=== PATIENT | male | born 1995 | race Caucasian/White ===

== ENCOUNTER 2016-12-19 13:40 | Inpatient (IN) | payer MEDICAID, OTHER ==
[~2016-12-19] VITALS: Ht 175.3 cm; Wt 100.0 kg
[2016-12-19] MEDS ORDERED: LIDOCAINE 1%/EPI 30 ML INJ ONE (14:02)
[2016-12-19] MEDS ORDERED: LIDOCAINE 1%/EPI 30 ML INJ INJ STA (14:03)
[2016-12-19] MEDS ORDERED: SOD CHLORIDE 0.9% 1,000 ML IV STA (14:08)
[2016-12-19] MEDS ORDERED: DIPHTH/TET/ACEL PERTUSS (ADULT) 0.5 ML VIAL IM* ONE (14:30)
[2016-12-19] MEDS ORDERED: CEFAZOLIN 1 GM/50 ML (PMX) 50 ML IVPB SCH (14:30)
[2016-12-19] MEDS ORDERED: HYDROmorphONE 2 MG/ML SYG IV ONE (14:30)
[2016-12-19] MEDS ORDERED: ONDANSETRON 4 MG INJ IV ONE (14:30)
[2016-12-19 14:55] LABS: ADD SCAN DIFF NO
[2016-12-19 15:03] LABS: BASOPHIL # 0.1 10^3/ul (0.0-0.1); BASOPHILS % 0.4 % (0.0-2.0); EOSINOPHILS % 0.3 % (0.0-7.0); HEMATOCRIT 42.6 % (42.0-52.0); HEMOGLOBIN 14.3 g/dl (14.0-18.0); LYMPHOCYTES # 1.9 10^3/ul (0.8-2.9); LYMPHOCYTES % 11.8 % (18.0-55.0); MEAN CORPUSCULAR HEMOGLOBIN 29.4 pg (29.0-33.0); MEAN CORPUSCULAR HGB CONC 33.6 g/dl (32.0-37.0); MEAN CORPUSCULAR VOLUME 87.7 fl (72.0-104.0); MONOCYTE # 1.1 10^3/ul (0.3-0.9); MONOCYTES % 6.8 % (0.0-13.0); NEUTROPHIL # 12.7 10^3/ul (1.6-7.5); NEUTROPHILS % 80.3 % (30.0-74.0); PLATELET COUNT 344 10^3/UL (140-415); RED BLOOD COUNT 4.86 10^6/ul (4.70-6.10); RED CELL DISTRIBUTION WIDTH 12.7 % (11.5-14.5); WHITE BLOOD COUNT 15.8 10^3/ul (4.8-10.8)
[2016-12-19 15:16] LABS: INR 1.02; PROTIME 13.4 Sec (12.2-14.2)
[2016-12-19 15:17] LABS: PARTIAL THROMBOPLASTIN TIME 29.4 Sec (25.0-35.0)
[2016-12-19 15:20] LABS: POTASSIUM 3.2 mmol/L (3.5-5.1)
[2016-12-19 15:23] LABS: CREATININE 0.83 mg/dl (0.61-1.24)
[2016-12-19 15:24] LABS: CALCIUM 9.4 mg/dl (8.4-10.2)
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
[2016-12-19 17:00] VITALS: BP 139/89; RESP 18
[2016-12-19] MEDS ORDERED: ACETAMINOPHEN 325 MG TAB PO PRN ×2 (17:00→17:30)
[2016-12-19] MEDS ORDERED: ONDANSETRON 4 MG INJ IV PRN ×2 (17:00→17:30)
[2016-12-19] MEDS ORDERED: MAGNESIUM HYDROXIDE 30ML CUP PO PRN (17:30)
[2016-12-19] MEDS ORDERED: DOCUSATE SODIUM 100 MG CAP PO PRN (17:30)
[2016-12-19] MEDS ORDERED: VANCOMYCIN IV PER PHARMACY XX SCH (17:30)
[2016-12-19] MEDS ORDERED: ALBUTEROL/IPRATROPIUM (NEB) 3 ML AMP HHN PRN (17:30)
[2016-12-19] MEDS ORDERED: NITROGLYCERIN (SL) 0.4 MG TAB SL PRN (17:30)
[2016-12-19] MEDS ORDERED: NA PHOSPHATE/BIPHOS 133 ML ENEMA PR PRN (17:30)
[2016-12-19] MEDS ORDERED: NACL 0.9% 3 ML SYG IV SCH (17:30)
[2016-12-19] MEDS ORDERED: hydrALAzine 20 MG INJ IV PRN (17:30)
[2016-12-19] MEDS ORDERED: LORAZEPAM 2 MG INJ IV PRN (17:30)
[2016-12-19] MEDS: morphine 2 MG INJ IV PRN ×2 (18:12→22:15)
[2016-12-19] MEDS: PIPER-TAZO 3.375 GM IV (PMX) 100 ML IVPB SCH ×2 (18:20→23:24)
[2016-12-19] MEDS: SOD CHLORIDE 0.9% 1,000 ML IV SCH (18:20)
[2016-12-19 18:28] VITALS: Ht 175.3 cm; Wt 100.0 kg
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
[2016-12-19 19:38] LABS: INR 1.06; PROTIME 13.8 Sec (12.2-14.2); PT RATIO 1.1
[2016-12-19 19:39] LABS: PARTIAL THROMBOPLASTIN TIME 30.9 Sec (25.0-35.0)
[2016-12-19] MEDS: HYDROCODONE/APAP (5/325) TAB PO PRN (19:50)
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
[2016-12-19 20:19] VITALS: BP 121/67; RESP 20
[2016-12-20] MEDS: morphine 2 MG INJ IV PRN ×5 (01:58→20:04)
[2016-12-20] MEDS: HYDROCODONE/APAP (5/325) TAB PO PRN ×4 (02:57→23:08)
[2016-12-20] MEDS: SOD CHLORIDE 0.9% 1,000 ML IV SCH ×4 (02:58→23:16)
[2016-12-20] MEDS: PIPER-TAZO 3.375 GM IV (PMX) 100 ML IVPB SCH (05:41)
[2016-12-20] MEDS: PANTOPRAZOLE (EC) 40 MG TAB PO SCH (05:41)
[2016-12-20 07:15] LABS: CHOL/HDL RATIO 3.6 RATIO
[2016-12-20 07:24] LABS: ADD SCAN DIFF NO
[2016-12-20 07:35] LABS: THYROID STIMULATING HORMONE 1.17 MIU/L (0.465-4.680)
[2016-12-20 07:43] LABS: POTASSIUM 3.9 mmol/L (3.5-5.1)
[2016-12-20 07:46] LABS: CREATININE 0.89 mg/dl (0.61-1.24)
[2016-12-20 07:47] LABS: CALCIUM 9.1 mg/dl (8.4-10.2); MAGNESIUM 1.7 mg/dl (1.7-2.5); PHOSPHORUS 4.3 mg/dl (2.5-4.9)
[2016-12-20 07:51] LABS: BASOPHILS % 0.3 % (0.0-2.0); EOSINOPHILS # 0.1 10^3/ul (0.0-0.5); EOSINOPHILS % 1.1 % (0.0-7.0); HEMATOCRIT 39.3 % (42.0-52.0); HEMOGLOBIN 12.9 g/dl (14.0-18.0); LYMPHOCYTES # 2.4 10^3/ul (0.8-2.9); LYMPHOCYTES % 23.9 % (18.0-55.0); MEAN CORPUSCULAR HEMOGLOBIN 29.5 pg (29.0-33.0); MEAN CORPUSCULAR HGB CONC 32.8 g/dl (32.0-37.0); MEAN CORPUSCULAR VOLUME 89.7 fl (72.0-104.0); MEAN PLATELET VOLUME 9.6 fl (7.4-10.4); MONOCYTE # 1.1 10^3/ul (0.3-0.9); MONOCYTES % 10.8 % (0.0-13.0); NEUTROPHIL # 6.3 10^3/ul (1.6-7.5); NEUTROPHILS % 63.6 % (30.0-74.0); PLATELET COUNT 313 10^3/UL (140-415); RED BLOOD COUNT 4.38 10^6/ul (4.70-6.10); RED CELL DISTRIBUTION WIDTH 12.9 % (11.5-14.5); WHITE BLOOD COUNT 9.9 10^3/ul (4.8-10.8)
[2016-12-20 07:59] VITALS: BP 117/73; RESP 16
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
[2016-12-20] MEDS: VANCOMYCIN 1 GM in NS 250 ML IVPB SCH ×2 (17:35→23:16)
[2016-12-20 19:22] VITALS: BP 136/71; RESP 18
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
[2016-12-21] MEDS: morphine 2 MG INJ IV PRN ×2 (03:18→10:05)
[2016-12-21] MEDS: HYDROCODONE/APAP (5/325) TAB PO PRN ×3 (05:15→23:15)
[2016-12-21] MEDS: PANTOPRAZOLE (EC) 40 MG TAB PO SCH (05:15)
[2016-12-21] MEDS: SOD CHLORIDE 0.9% 1,000 ML IV SCH ×4 (05:23→23:08)
[2016-12-21] MEDS: VANCOMYCIN 1 GM in NS 250 ML IVPB SCH ×3 (06:57→23:07)
[2016-12-21 08:00] LABS: ADD SCAN DIFF NO
[2016-12-21 08:08] VITALS: BP 127/77; RESP 18
[2016-12-21 08:09] LABS: BASOPHILS % 0.4 % (0.0-2.0); EOSINOPHILS # 0.1 10^3/ul (0.0-0.5); EOSINOPHILS % 0.7 % (0.0-7.0); HEMATOCRIT 40.1 % (42.0-52.0); HEMOGLOBIN 13.7 g/dl (14.0-18.0); LYMPHOCYTES # 1.9 10^3/ul (0.8-2.9); LYMPHOCYTES % 18.1 % (18.0-55.0); MEAN CORPUSCULAR HEMOGLOBIN 30.4 pg (29.0-33.0); MEAN CORPUSCULAR HGB CONC 34.2 g/dl (32.0-37.0); MEAN CORPUSCULAR VOLUME 89.1 fl (72.0-104.0); MEAN PLATELET VOLUME 9.2 fl (7.4-10.4); MONOCYTE # 0.9 10^3/ul (0.3-0.9); MONOCYTES % 8.5 % (0.0-13.0); NEUTROPHIL # 7.6 10^3/ul (1.6-7.5); PLATELET COUNT 327 10^3/UL (140-415); RED CELL DISTRIBUTION WIDTH 12.7 % (11.5-14.5); WHITE BLOOD COUNT 10.5 10^3/ul (4.8-10.8)
[2016-12-21 08:25] LABS: CREATININE 0.83 mg/dl (0.61-1.24)
[2016-12-21 10:08] VITALS: BP 131/94; PULSE 72
[2016-12-21] MEDS ORDERED: morphine (ER) 15 MG TAB PO ONE (11:00)
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
[2016-12-21 19:47] VITALS: BP 134/60; RESP 18
[2016-12-21] MEDS: morphine (ER) 15 MG TAB PO SCH (20:59)
[2016-12-22] MEDS: SOD CHLORIDE 0.9% 1,000 ML IV SCH ×3 (05:16→23:30)
[2016-12-22] MEDS: VANCOMYCIN 1.25 GM in SOD CHLORIDE 0.9% 250 ML IVPB SCH ×3 (05:39→20:31)
[2016-12-22] MEDS: PANTOPRAZOLE (EC) 40 MG TAB PO SCH (05:57)
[2016-12-22] MEDS: HYDROCODONE/APAP (5/325) TAB PO PRN ×2 (05:57→18:40)
[2016-12-22 07:39] VITALS: BP 121/72; RESP 18
[2016-12-22 07:57] LABS: ADD SCAN DIFF NO
[2016-12-22 08:08] LABS: BASOPHIL # 0.1 10^3/ul (0.0-0.1); BASOPHILS % 0.5 % (0.0-2.0); EOSINOPHILS # 0.2 10^3/ul (0.0-0.5); EOSINOPHILS % 1.5 % (0.0-7.0); HEMATOCRIT 39.7 % (42.0-52.0); HEMOGLOBIN 12.9 g/dl (14.0-18.0); LYMPHOCYTES # 2.4 10^3/ul (0.8-2.9); LYMPHOCYTES % 23.7 % (18.0-55.0); MEAN CORPUSCULAR HEMOGLOBIN 29.4 pg (29.0-33.0); MEAN CORPUSCULAR HGB CONC 32.5 g/dl (32.0-37.0); MEAN CORPUSCULAR VOLUME 90.4 fl (72.0-104.0); MEAN PLATELET VOLUME 9.4 fl (7.4-10.4); MONOCYTES % 10.3 % (0.0-13.0); NEUTROPHIL # 6.3 10^3/ul (1.6-7.5); NEUTROPHILS % 63.7 % (30.0-74.0); PLATELET COUNT 311 10^3/UL (140-415); RED BLOOD COUNT 4.39 10^6/ul (4.70-6.10); RED CELL DISTRIBUTION WIDTH 12.9 % (11.5-14.5); WHITE BLOOD COUNT 9.9 10^3/ul (4.8-10.8)
[2016-12-22 08:16] LABS: POTASSIUM 3.7 mmol/L (3.5-5.1)
[2016-12-22 08:19] LABS: CREATININE 0.77 mg/dl (0.61-1.24)
[2016-12-22 08:20] LABS: CALCIUM 9.3 mg/dl (8.4-10.2)
[2016-12-22] MEDS: morphine (ER) 15 MG TAB PO SCH ×2 (08:59→20:30)
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
[2016-12-22 19:25] VITALS: BP 118/58; RESP 22
--- NOTE | 2016-12-22 19:28 | PN ---
DATE: 12/22/2016 Stays afebrile. No more leukocytosis with a WBC count of 9.9. Less effusion over the left knee. N o signs of local pyogenic process over the area of laceration. Has been up and around with PT. Zulay armendariz to be discharged with oral antibiotics from ortho point. Further followup as an outpatient. Dictated By: BAILEY MIR/BRUCE Conf#: [id number] DID#: [id number]
[2016-12-23] MEDS: HYDROCODONE/APAP (5/325) TAB PO PRN ×4 (00:19→23:32)
[2016-12-23] MEDS: SOD CHLORIDE 0.9% 1,000 ML IV SCH ×3 (01:16→19:26)
[2016-12-23] MEDS: PANTOPRAZOLE (EC) 40 MG TAB PO SCH (05:47)
[2016-12-23] MEDS: VANCOMYCIN 1.25 GM in SOD CHLORIDE 0.9% 250 ML IVPB SCH ×3 (05:47→21:15)
[2016-12-23 07:22] VITALS: BP 123/63; RESP 18
[2016-12-23] MEDS: morphine (ER) 15 MG TAB PO SCH ×2 (08:50→20:50)
[2016-12-23 10:59] LABS: ADD SCAN DIFF NO
[2016-12-23 11:13] LABS: BASOPHIL # 0.1 10^3/ul (0.0-0.1); BASOPHILS % 0.5 % (0.0-2.0); EOSINOPHILS # 0.2 10^3/ul (0.0-0.5); EOSINOPHILS % 1.7 % (0.0-7.0); HEMATOCRIT 41.9 % (42.0-52.0); HEMOGLOBIN 13.4 g/dl (14.0-18.0); LYMPHOCYTES # 2.4 10^3/ul (0.8-2.9); LYMPHOCYTES % 25.5 % (18.0-55.0); MEAN CORPUSCULAR HEMOGLOBIN 29.3 pg (29.0-33.0); MEAN CORPUSCULAR VOLUME 91.7 fl (72.0-104.0); MEAN PLATELET VOLUME 9.5 fl (7.4-10.4); MONOCYTE # 0.8 10^3/ul (0.3-0.9); MONOCYTES % 8.8 % (0.0-13.0); NEUTROPHILS % 62.9 % (30.0-74.0); PLATELET COUNT 354 10^3/UL (140-415); RED BLOOD COUNT 4.57 10^6/ul (4.70-6.10); RED CELL DISTRIBUTION WIDTH 12.9 % (11.5-14.5); WHITE BLOOD COUNT 9.5 10^3/ul (4.8-10.8)
[2016-12-23 11:30] LABS: POTASSIUM 4.5 mmol/L (3.5-5.1)
[2016-12-23 11:32] LABS: CREATININE 0.78 mg/dl (0.61-1.24)
[2016-12-23 11:33] LABS: CALCIUM 9.5 mg/dl (8.4-10.2)
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
[2016-12-23 19:19] VITALS: BP 128/63; RESP 18
[2016-12-24] MEDS: VANCOMYCIN 1.25 GM in SOD CHLORIDE 0.9% 250 ML IVPB SCH ×2 (04:23→13:00)
[2016-12-24] MEDS: PANTOPRAZOLE (EC) 40 MG TAB PO SCH (05:55)
[2016-12-24] MEDS: HYDROCODONE/APAP (5/325) TAB PO PRN (05:55)
[2016-12-24] MEDS: SOD CHLORIDE 0.9% 1,000 ML IV SCH (06:43)
[2016-12-24 07:37] VITALS: BP 126/70; RESP 18
[2016-12-24 08:10] LABS: ADD SCAN DIFF NO
[2016-12-24] MEDS: morphine (ER) 15 MG TAB PO SCH (08:18)
[2016-12-24 08:19] LABS: BASOPHIL # 0.1 10^3/ul (0.0-0.1); BASOPHILS % 0.9 % (0.0-2.0); EOSINOPHILS # 0.2 10^3/ul (0.0-0.5); EOSINOPHILS % 1.8 % (0.0-7.0); HEMATOCRIT 42.2 % (42.0-52.0); HEMOGLOBIN 13.7 g/dl (14.0-18.0); LYMPHOCYTES # 2.4 10^3/ul (0.8-2.9); LYMPHOCYTES % 29.5 % (18.0-55.0); MEAN CORPUSCULAR HEMOGLOBIN 29.7 pg (29.0-33.0); MEAN CORPUSCULAR HGB CONC 32.5 g/dl (32.0-37.0); MEAN CORPUSCULAR VOLUME 91.5 fl (72.0-104.0); MEAN PLATELET VOLUME 9.1 fl (7.4-10.4); MONOCYTE # 0.8 10^3/ul (0.3-0.9); MONOCYTES % 9.5 % (0.0-13.0); NEUTROPHIL # 4.7 10^3/ul (1.6-7.5); NEUTROPHILS % 57.6 % (30.0-74.0); PLATELET COUNT 373 10^3/UL (140-415); RED BLOOD COUNT 4.61 10^6/ul (4.70-6.10); RED CELL DISTRIBUTION WIDTH 12.9 % (11.5-14.5); WHITE BLOOD COUNT 8.1 10^3/ul (4.8-10.8)
[2016-12-24 08:40] LABS: POTASSIUM 4.3 mmol/L (3.5-5.1)
[2016-12-24 08:43] LABS: CALCIUM 9.5 mg/dl (8.4-10.2); CREATININE 0.79 mg/dl (0.61-1.24)
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
--- NOTE | 2016-12-24 11:57 | PDOCDIS ---
Discharge Instructions CONDITION Patient Condition: Good HOME CARE INSTRUCTIONS: Special Diet: regular diet ACTIVITY: Activity Restrictions: Slowly Increase Activity Rest between Activity Avoid heavy lifting Avoid Heavy Housework FOLLOW UP/APPOINTMENTS Appointments follow up with his own PMD through HMO insurance in 1-2 week. Follow up with in 2-3 week after discharge SHANNON PAZ MD Dec 24, 2016 11:57
[2016-12-24] MEDS ORDERED: HYDR-3498 PO (12:06)
[2016-12-24] MEDS ORDERED: BACTDS PO (12:09)
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
--- NOTE | 2016-12-25 15:13 | RADRPT ---
Vent Rate: 66 bpm RR Interval: 0 msec AR Interval: 150 msec QRS Duration: 84 msec QT Interval: 384 msec QTC Interval: 402 msec P-R-T [place]: 11 - 61 - 44 degrees Normal sinus rhythm Normal ECG Electronically Signed By: Cory Raman [id number]
== END 2016-12-24 13:10 | disposition home or self-care (01) | DRG 605 ==
LOC: E/R 13:40 → MS2 16:41
PROVIDERS: ADMIT Hospitalist; ATTEND Hospitalist
DX: S81.012A Laceration without foreign body, left knee, initial encounter (principal); D72.829 Elevated white blood cell count, unspecified; F17.200 Nicotine dependence, unspecified, uncomplicated; F43.8 Other reactions to severe stress; D72.828 Other elevated white blood cell count; M25.562 Pain in left knee; V43.02XA Car driver injured in collision with other type car in nontraffic accident, initial encounter; Y92.89 Other specified places as the place of occurrence of the external cause
CPT/HCPCS: 71010; 72170; 73562; 73700; 80048; 80061; 80202; 83036; 83735; 84100; 84439; 84443; 85025; 85610; 85730; 90471; 90715; 93005; 96374; 96375; 97116; 97163; 97167; 97530; J0690; J1170; J2270; J2405; J2543; J3370; J7030; J7050